=== PATIENT | female | born 1945 | race Caucasian/White ===

== ENCOUNTER → 2021-05-01 | Outpatient (CLI) | payer MEDICARE ==
[~2021-05-01] MED LIST: AMIODARONE; CALCIUM; CYMBALTA30 MG PO; DITROPAN XL10 MG PO; DONEPEZIL HCL10 MG PO; FUROSEMIDE20 MG PO; JARDIANCE; LIPITOR TAB 1010 MG PO; METFORMIN HCL1000 MG PO; PROBIOTIC; PROPRANOLOL HCL20 MG PO; PROTONIX40 MG PO; SPIRONOLACTONE25 MG PO; TIZANIDINE HCL4 M1 PO; TOUJEO; VITAMIN C; VITAMIN D; ZINC
[2021-05-01 13:56] LABS: HEMOGLOBIN 9.1 gm/dl (12.3-15.3); RED BLOOD COUNT 3.47 M/UL (4.00-5.10)
== END ==
LOC: OPSV2 11:00 → EDSTATUS 12:30 → OPSV2 12:38
PROVIDERS: Orthopaedic Surgery
DX: Z01.818 Encounter for other preprocedural examination (principal); Z96.642 Presence of left artificial hip joint
CPT/HCPCS: 36415; 71046; 80048; 83036; 85027; 93005

== ENCOUNTER → 2021-05-11 | Outpatient (CLI) | payer MEDICARE ==
[~2021-05-11] MED LIST changes: -AMIODARONE; +AMIODARONE HCL200 MG PO; +ASPIRIN EC81 MG PO; -CALCIUM; +CALCIUM500 MG PO; +CYANOCOBAL1000 MCG/1 IM; -JARDIANCE; +JARDIANCE25 MG PO; -PROBIOTIC; +PROBIOTIC1 EAC1 PO; -TOUJEO; +TOUJEO MAX300 UNIT/1 SC; -VITAMIN C; +VITAMIN C500 M4 PO; -VITAMIN D; +VITAMIN D325 MCG PO; -ZINC; +ZINC50 M2 PO
== END ==
LOC: LAB 11:01
PROVIDERS: Orthopaedic Surgery
DX: Z01.812 Encounter for preprocedural laboratory examination (principal)
CPT/HCPCS: 36415; 80048; 86850; 86900; 86901; 86920

== ENCOUNTER 2021-05-12 05:29 | Inpatient (IN) | payer MEDICARE ==
[~2021-05-12] VITALS: Ht 162.6 cm; Wt 66.7 kg
[~2021-05-12 05:29] MED LIST changes: -AMIODARONE HCL200 MG PO; -ASPIRIN EC81 MG PO; -CALCIUM500 MG PO; -CYANOCOBAL1000 MCG/1 IM; -JARDIANCE25 MG PO; -LIPITOR TAB 1010 MG PO; -PROBIOTIC1 EAC1 PO; -TOUJEO MAX300 UNIT/1 SC; -VITAMIN C500 M4 PO; -VITAMIN D325 MCG PO; -ZINC50 M2 PO
[2021-05-12] MEDS ORDERED: JARDIANCE25 MG PO (13:37)
[2021-05-12] MEDS ORDERED: LIPITOR TAB 1010 MG PO (13:38)
[2021-05-12] MEDS ORDERED: TOUJEO MAX300 UNIT/1 SC (13:47)
[2021-05-12] MEDS ORDERED: AMIODARONE HCL200 MG PO (13:48)
[2021-05-12] MEDS ORDERED: ZINC50 M2 PO (13:49)
[2021-05-12] MEDS ORDERED: VITAMIN D325 MCG PO (13:49)
[2021-05-12] MEDS ORDERED: VITAMIN C500 M4 PO (13:49)
[2021-05-12] MEDS ORDERED: CALCIUM500 MG PO (13:49)
[2021-05-12] MEDS ORDERED: PROBIOTIC1 EAC1 PO (13:50)
[2021-05-12] MEDS ORDERED: ASPIRIN EC81 MG PO (15:58)
[2021-05-12] MEDS ORDERED: CYANOCOBAL1000 MCG/1 IM (16:05)
[2021-05-13 07:17] LABS: RED BLOOD COUNT 2.02 M/UL (4.00-5.10); WHITE BLOOD COUNT 8.9 K/UL (4.5-11.0)
[2021-05-13 08:20] LABS: HEMOGLOBIN 5.3 gm/dl (12.3-15.3)
[2021-05-13 18:19] LABS: HEMOGLOBIN 8.9 gm/dl (12.3-15.3)
[2021-05-14 06:45] LABS: HEMOGLOBIN 7.6 gm/dl (12.3-15.3); WHITE BLOOD COUNT 8.9 K/UL (4.5-11.0)
[2021-05-14 06:47] LABS: RED BLOOD COUNT 2.84 M/UL (4.00-5.10)
[2021-05-15 06:27] LABS: HEMOGLOBIN 8.6 gm/dl (12.3-15.3); RED BLOOD COUNT 3.08 M/UL (4.00-5.10); WHITE BLOOD COUNT 8.7 K/UL (4.5-11.0)
[2021-05-16 05:59] LABS: HEMOGLOBIN 9.4 gm/dl (12.3-15.3); RED BLOOD COUNT 3.38 M/UL (4.00-5.10); WHITE BLOOD COUNT 8.3 K/UL (4.5-11.0)
--- NOTE | 2021-05-16 11:28 | NUR ---
RN SURGERY AND MYSELF HAD A THOROUGH DISCUSSION WITH PATIENT AND FAMILY ABOUT THE RISKS OF NOT GOING TO INPATIENT REHAB AND THAT FURTHER AND PERMANENT IMPAIRMENT COULD RESULT. PATIENT AND FAMILY VERBALIZED UNDERSTANDING OF RISKS AND STATES THAT THEY WANT TO USE HOME HEALTH FOR THERAPY BECAUSE THEY DO NOT WANT TO BE IN A REHAB FAR AWAY. THEY STATED THAT THEY WILL BE ABLE TO CARE FOR THE PATIENT AT HOME. PATIENT VERBALIZED THE UNDERSTANDING OF RISKS OF GOING WITH HOME HEALTH AND NOT GETTING THE SAME AMOUNT OF THERAPY THAT SHE WOULD IN REHAB AND THAT THIS COULD ALTER THE COURSE OF HER HEALING IN THE BORING [employer]ACHINE [employer].
--- NOTE | 2021-05-16 13:10 | NUR ---
REPORT CXALLED TO PEACE CARVALHO AT [facility].
== END 2021-05-16 14:55 | disposition home health service (06) | DRG 470 ==
LOC: OR 05:29 → EDSTATUS 10:00 → M/S 14:56 → OR 14:56 → M/S 05-15 05:28
PROVIDERS: Internal Medicine; Nurse Practitioner Family; ADMIT Orthopaedic Surgery
PROC: 0SRB0J9 Replacement of Left Hip Joint with Synthetic Substitute, Cemented, Open Approach (ICD-10-PCS; principal; 2021-05-12 10:00)
PROC: 30233N1 Transfusion of Nonautologous Red Blood Cells into Peripheral Vein, Percutaneous Approach (ICD-10-PCS; 2021-05-14)
DX: M16.12 Unilateral primary osteoarthritis, left hip (principal); D62 Acute posthemorrhagic anemia; S72.002K Fracture of unspecified part of neck of left femur, subsequent encounter for closed fracture with nonunion; Z20.822 Contact with and (suspected) exposure to COVID-19; Z96.652 Presence of left artificial knee joint; K76.0 Fatty (change of) liver, not elsewhere classified; R32 Unspecified urinary incontinence; I48.0 Paroxysmal atrial fibrillation; I25.10 Atherosclerotic heart disease of native coronary artery without angina pectoris; E11.65 Type 2 diabetes mellitus with hyperglycemia; G47.33 Obstructive sleep apnea (adult) (pediatric); I95.1 Orthostatic hypotension; G51.0 Bell's palsy; F17.210 Nicotine dependence, cigarettes, uncomplicated; E78.5 Hyperlipidemia, unspecified; Z87.11 Personal history of peptic ulcer disease; Z79.01 Long term (current) use of anticoagulants; Z80.3 Family history of malignant neoplasm of breast; Z90.49 Acquired absence of other specified parts of digestive tract; Z90.710 Acquired absence of both cervix and uterus; Z88.8 Allergy status to other drugs, medicaments and biological substances; Z88.6 Allergy status to analgesic agent; Z79.4 Long term (current) use of insulin; Z87.19 Personal history of other diseases of the digestive system
CPT/HCPCS: 36415; 72170; 80048; 80053; 82962; 85014; 85018; 85025; 85610; 86850; 86900; 86901; 86920; 97110-GP-CQ; 97116-GP-CQ; 97162; 97165; 97530; 97530-GP-CQ; 97535; C1713; C1776; J0171; J0690; J0735; J1100; J1885; J2001; J2250; J2270; J2405; J2704; J2710; J2795; J3370; J7030; J7050; J7120; P9016

== ENCOUNTER 2021-05-22 18:10 | Inpatient (IN) | payer MEDICARE, OTHER ==
[~2021-05-22] VITALS: Ht 162.6 cm; Wt 86.4 kg
[~2021-05-22 18:10] MED LIST changes: +AMIODARONE HCL200 MG PO; +ASPIRIN EC81 MG PO; +CALCIUM500 MG PO; +CYANOCOBAL1000 MCG/1 IM; -DONEPEZIL HCL10 MG PO; -FUROSEMIDE20 MG PO; +JARDIANCE25 MG PO; +LIPITOR TAB 1010 MG PO; -METFORMIN HCL1000 MG PO; +PROBIOTIC1 EAC1 PO; +TOUJEO MAX300 UNIT/1 SC; +VITAMIN C500 M4 PO; +ZINC50 M2 PO
[2021-05-22 23:26] LABS: HEMOGLOBIN 9.1 gm/dl (12.3-15.3); RED BLOOD COUNT 3.21 M/UL (4.00-5.10); WHITE BLOOD COUNT 23.4 K/UL (4.5-11.0)
[2021-05-23 03:49] LABS: HEMOGLOBIN 8.8 gm/dl (12.3-15.3); RED BLOOD COUNT 3.08 M/UL (4.00-5.10); WHITE BLOOD COUNT 23.7 K/UL (4.5-11.0)
[2021-05-23] MEDS ORDERED: CEFDINIR300 MG PO (09:28)
[2021-05-23] MEDS ORDERED: ROXICODONE5 MG PO (09:30)
[2021-05-23] MEDS ORDERED: FLUCONAZOLE150 MG PO (09:30)
[2021-05-23] MEDS ORDERED: MOBIC15 MG PO (09:37)
[2021-05-23] MEDS ORDERED: PHENERGAN 25 MG25 M1 PO (09:39)
[2021-05-23] MEDS ORDERED: ACETAMINOPHEN500 M1 PO (09:39)
[2021-05-23] MEDS ORDERED: CALCIUM CARBON600 M1 PO (09:44)
[2021-05-23] MEDS ORDERED: SUPER BEETS PO (09:47)
[2021-05-23] MEDS ORDERED: METFORMIN HCL1000 MG PO (13:36)
[2021-05-23] MEDS ORDERED: DONEPEZIL HCL10 MG PO (13:40)
[2021-05-23] MEDS ORDERED: FUROSEMIDE20 MG PO (13:46)
[2021-05-23] MEDS ORDERED: VITAMIN D350 MC3 PO (13:49)
[2021-05-24 05:15] LABS: HEMOGLOBIN 7.4 gm/dl (12.3-15.3)
[2021-05-24 05:29] LABS: RED BLOOD COUNT 2.61 M/UL (4.00-5.10); WHITE BLOOD COUNT 12.6 K/UL (4.5-11.0)
[2021-05-25 05:44] LABS: HEMOGLOBIN 7.1 gm/dl (12.3-15.3); RED BLOOD COUNT 2.61 M/UL (4.00-5.10)
[2021-05-25 05:45] LABS: WHITE BLOOD COUNT 6.9 K/UL (4.5-11.0)
[2021-05-25 08:15] LABS: HBSAG SCREEN Negative (Negative); HEP A AB, IGM Negative (Negative); HEP B CORE AB, IGM Negative (Negative); HEP C VIRUS AB <0.1 (0.0-0.9)
[2021-05-26 02:40] LABS: HEMOGLOBIN 8.3 gm/dl (12.3-15.3); WHITE BLOOD COUNT 6.6 K/UL (4.5-11.0)
[2021-05-26 02:41] LABS: RED BLOOD COUNT 2.93 M/UL (4.00-5.10)
[2021-05-27 06:21] LABS: HEMOGLOBIN 7.1 gm/dl (12.3-15.3); WHITE BLOOD COUNT 7.1 K/UL (4.5-11.0)
[2021-05-27 06:22] LABS: RED BLOOD COUNT 2.56 M/UL (4.00-5.10)
[2021-05-27 06:46] LABS: BUN/CREATININE RATIO 22 (0-10)
[2021-05-28 04:22] LABS: HEMOGLOBIN 7.3 gm/dl (12.3-15.3); RED BLOOD COUNT 2.72 M/UL (4.00-5.10); WHITE BLOOD COUNT 7.2 K/UL (4.5-11.0)
[2021-05-28 04:33] LABS: BUN/CREATININE RATIO 17 (0-10)
[2021-05-28 21:21] LABS: WHITE BLOOD COUNT 7.5 K/UL (4.5-11.0)
[2021-05-28 21:32] LABS: RED BLOOD COUNT 3.17 M/UL (4.00-5.10)
[2021-05-29 03:52] LABS: HEMOGLOBIN 8.4 gm/dl (12.3-15.3); RED BLOOD COUNT 3.02 M/UL (4.00-5.10); WHITE BLOOD COUNT 8.7 K/UL (4.5-11.0)
[2021-05-29 04:21] LABS: BUN/CREATININE RATIO 16 (0-10)
[2021-05-30 09:10] LABS: RED BLOOD COUNT 2.77 M/UL (4.00-5.10)
[2021-05-30 09:11] LABS: HEMOGLOBIN 7.9 gm/dl (12.3-15.3)
[2021-05-31 03:31] LABS: HEMOGLOBIN 8.4 gm/dl (12.3-15.3); RED BLOOD COUNT 3.01 M/UL (4.00-5.10)
[2021-05-31 03:45] LABS: WHITE BLOOD COUNT 12.9 K/UL (4.5-11.0)
[2021-06-01 06:36] LABS: HEMOGLOBIN 8.3 gm/dl (12.3-15.3); RED BLOOD COUNT 2.86 M/UL (4.00-5.10); WHITE BLOOD COUNT 8.1 K/UL (4.5-11.0)
[2021-06-01] MEDS ORDERED: XIFAXAN 550 MG550 MG PO (09:08)
[2021-06-01] MEDS ORDERED: CHRONULAC20 GM/30 M PO (09:08)
[2021-06-01] MEDS ORDERED: FUROSEMIDE20 MG PO (09:08)
[2021-06-01] MEDS ORDERED: IPRAT-ALBUT 0.5-3 ML NEB (09:08)
[2021-06-01] MEDS ORDERED: LOPRESSOR 25 MG25 MG PO (09:08)
[2021-06-03 06:37] LABS: HEMOGLOBIN 8.5 gm/dl (12.3-15.3); RED BLOOD COUNT 3.07 M/UL (4.00-5.10); WHITE BLOOD COUNT 6.8 K/UL (4.5-11.0)
[2021-06-03 07:02] LABS: BUN/CREATININE RATIO 18 (0-10)
[2021-06-04 10:12] LABS: HEMOGLOBIN 8.8 gm/dl (12.3-15.3); RED BLOOD COUNT 3.15 M/UL (4.00-5.10); WHITE BLOOD COUNT 6.3 K/UL (4.5-11.0)
[2021-06-04 10:33] LABS: BUN/CREATININE RATIO 15 (0-10)
[2021-06-06 04:16] LABS: HEMOGLOBIN 7.9 gm/dl (12.3-15.3); RED BLOOD COUNT 2.86 M/UL (4.00-5.10); WHITE BLOOD COUNT 6.5 K/UL (4.5-11.0)
[2021-06-06 04:28] LABS: BUN/CREATININE RATIO 14 (0-10)
--- NOTE | 2021-06-07 12:23 | NUR ---
1130- NOTIFIED DR OTTO TO RECONCILE HOME MEDICATIONS.
[2021-06-09 06:16] LABS: HEMOGLOBIN 8.4 gm/dl (12.3-15.3); RED BLOOD COUNT 2.91 M/UL (4.00-5.10); WHITE BLOOD COUNT 4.5 K/UL (4.5-11.0)
[2021-06-09 06:57] LABS: BUN/CREATININE RATIO 14 (0-10)
[2021-06-11 03:37] LABS: HEMOGLOBIN 8.2 gm/dl (12.3-15.3); RED BLOOD COUNT 2.87 M/UL (4.00-5.10)
[2021-06-11 03:47] LABS: WHITE BLOOD COUNT 6.4 K/UL (4.5-11.0)
[2021-06-11 04:03] LABS: BUN/CREATININE RATIO 17 (0-10)
--- NOTE | 2021-06-15 13:28 | NUR ---
F/C OUT PER ORDERS PT TOLERATED WELL HAS USED THE RESTROOM X2 WITH NO ISSUES OR COMPLAINTS SINCE 1030 AM
== END 2021-06-15 11:56 | DRG 856 ==
LOC: CCU 18:10 → MED SURG 4 21:15 → CCU 21:15 → MED SURG 4 05-25 10:09
PROVIDERS: Internal Medicine; Internal Medicine Infectious Disease; Internal Medicine Nephrology; Orthopaedic Surgery; Physician Assistant Medical; ADMIT Internal Medicine
PROC: B24BZZZ Ultrasonography of Heart with Aorta (ICD-10-PCS; 2021-05-22)
PROC: 3E04329 Introduction of Other Anti-infective into Central Vein, Percutaneous Approach (ICD-10-PCS; 2021-05-22)
PROC: 3E043XZ Introduction of Vasopressor into Central Vein, Percutaneous Approach (ICD-10-PCS; 2021-05-22)
PROC: 5A0935A Assistance with Respiratory Ventilation, Less than 24 Consecutive Hours, High Flow/Velocity Cannula (ICD-10-PCS; 2021-05-23)
PROC: 5A0935A Assistance with Respiratory Ventilation, Less than 24 Consecutive Hours, High Flow/Velocity Cannula (ICD-10-PCS; 2021-05-24)
PROC: 30233N1 Transfusion of Nonautologous Red Blood Cells into Peripheral Vein, Percutaneous Approach (ICD-10-PCS; 2021-05-28)
PROC: 0SPR0JZ Removal of Synthetic Substitute from Right Hip Joint, Femoral Surface, Open Approach (ICD-10-PCS; 2021-05-29)
PROC: 0SRR0JZ Replacement of Right Hip Joint, Femoral Surface with Synthetic Substitute, Open Approach (ICD-10-PCS; 2021-05-29)
PROC: 0JBM0ZZ Excision of Left Upper Leg Subcutaneous Tissue and Fascia, Open Approach (ICD-10-PCS; principal; 2021-05-29 13:00)
PROC: 02HV33Z Insertion of Infusion Device into Superior Vena Cava, Percutaneous Approach (ICD-10-PCS; 2021-06-01)
DX: T81.44XA Sepsis following a procedure, initial encounter (principal); A41.9 Sepsis, unspecified organism; R65.21 Severe sepsis with septic shock; R57.0 Cardiogenic shock; J18.9 Pneumonia, unspecified organism; J96.01 Acute respiratory failure with hypoxia; G92.8 Other toxic encephalopathy; J69.0 Pneumonitis due to inhalation of food and vomit; N17.0 Acute kidney failure with tubular necrosis; K72.00 Acute and subacute hepatic failure without coma; I85.00 Esophageal varices without bleeding; E87.2 Acidosis; E87.1 Hypo-osmolality and hyponatremia; K76.6 Portal hypertension; I47.1 Supraventricular tachycardia; I13.0 Hypertensive heart and chronic kidney disease with heart failure and stage 1 through stage 4 chronic kidney disease, or unspecified chronic kidney disease; I47.2 Ventricular tachycardia; R18.8 Other ascites; I50.9 Heart failure, unspecified; L89.152 Pressure ulcer of sacral region, stage 2; Z20.822 Contact with and (suspected) exposure to COVID-19; E87.5 Hyperkalemia; I48.0 Paroxysmal atrial fibrillation; K74.60 Unspecified cirrhosis of liver; E78.5 Hyperlipidemia, unspecified; Z96.652 Presence of left artificial knee joint; Z96.642 Presence of left artificial hip joint; G47.33 Obstructive sleep apnea (adult) (pediatric); R32 Unspecified urinary incontinence; G51.0 Bell's palsy; R00.1 Bradycardia, unspecified; L89.156 Pressure-induced deep tissue damage of sacral region; L89.616 Pressure-induced deep tissue damage of right heel; D64.9 Anemia, unspecified; R25.1 Tremor, unspecified; N18.30 Chronic kidney disease, stage 3 unspecified; E11.22 Type 2 diabetes mellitus with diabetic chronic kidney disease; K75.81 Nonalcoholic steatohepatitis (NASH); K59.00 Constipation, unspecified; K72.90 Hepatic failure, unspecified without coma; E83.42 Hypomagnesemia; F03.90 Unspecified dementia, unspecified severity, without behavioral disturbance, psychotic disturbance, mood disturbance, and anxiety; Z87.11 Personal history of peptic ulcer disease; Z90.49 Acquired absence of other specified parts of digestive tract; Z98.890 Other specified postprocedural states; Z90.710 Acquired absence of both cervix and uterus; Z79.899 Other long term (current) drug therapy; Z88.8 Allergy status to other drugs, medicaments and biological substances; Z88.5 Allergy status to narcotic agent; Z80.3 Family history of malignant neoplasm of breast; Z79.4 Long term (current) use of insulin; Z79.82 Long term (current) use of aspirin
CPT/HCPCS: ECHO; 36415; 36430; 36600; 71045; 72131; 72170; 73502; 76705; 80048; 80053; 80074; 80202; 81001; 82140; 82550; 82553; 82570; 82803; 82962; 83605; 83735; 83880; 84100; 84132; 84133; 84156; 84300; 84439; 84443; 84484; 85025; 85027; 85610; 85730; 86140; 86850; 86900; 86901; 86920; 87040; 87070; 87081; 87086; 87205; 92526; 92610; 93005; 93306; 93970; 94640; 94760; 97110; 97110-GP-CQ; 97116-GP-CQ; 97161; 97164; 97165; 97166; 97530; 97530-GP-CQ; A6212; C1751; C1776; C9113; J0171; J0610; J0690; J0692; J0696; J0735; J1100; J1170; J1205; J1265; J1650; J1885; J1940; J2001; J2270; J2274; J2405; J3010; J3370; J3475; J7030; J7040; J7060; J7070; J7120; P9016; P9047; U0002